=== PATIENT | male | born 1970 | race Two or more races ===

== ENCOUNTER 2019-08-29 06:46 | Day surgery (SDC) | payer OTHER ==
[~2019-08-29] VITALS: Ht 165.1 cm; Wt 102.5 kg
[2019-08-29] VITALS (12 sets, daily range): BP systolic 108–148; BP diastolic 57–90
[~2019-08-29 06:46] MED LIST: ATORVASTATIN CA20 MG ORAL; FARXIGA10 MG PO; GLIPIZIDE5 MG ORAL; LISINOPRIL20 MG ORAL; METFORMIN HCL1000 M1 ORAL; ceFAZolin 1gm IVPB IVPB ONE; celeBREX 200mg Cap **SURGERY PATIENTS ONLY ORAL ONE; oxyCONTIN 20mg tab ORAL ONE
[2019-08-29] MEDS ORDERED: Midazolam 2mg/2ml Inj ONE (08:21)
[2019-08-29] MEDS ORDERED: Ketorolac 30mg Inj ONE ×2 (08:21→08:56)
[2019-08-29] MEDS ORDERED: fentaNYL 100 mcg/2 mL IV ONE (08:21)
[2019-08-29] MEDS ORDERED: Lidocaine 1% MPF 10mg/ml 5ml ONE (08:21)
[2019-08-29] MEDS ORDERED: Ropivacaine 5mg/ml Vial 20ml INJ ONE (08:22)
[2019-08-29] MEDS ORDERED: celeBREX 200mg Cap **SURGERY PATIENTS ONLY ORAL ONE (08:32)
[2019-08-29] MEDS ORDERED: oxyCONTIN 20mg tab ORAL ONE (08:32)
[2019-08-29] MEDS ORDERED: Kenalog-40 1ml Vial ONE (08:56)
[2019-08-29] MEDS ORDERED: EPINEPHrine 1mg/1ml Amp ONE (08:56)
[2019-08-29] MEDS ORDERED: LR 1000ml ONE (09:00)
[2019-08-29] MEDS ORDERED: NS Irrig 2000ml IRRIG ONE (09:00)
--- NOTE | 2019-08-29 10:11 | Anethesia Preoperative Eval ---
Anesthesia Pre-op PMH/ROS General Date of Evaluation: Aug 29, 2019 Time of Evaluation: 08:56 Anesthesiologist: Staci ASA Score: ASA 3 Mallampati Score Class I : Soft palate, uvula, fauces, pillars visible Class II: Soft palate, uvula, fauces visible Class III: Soft palate, base of uvula visible Class IV: Only hard plate visible Mallampati Classification: Class II Surgeon: Jose Diagnosis: L shoulder pain Surgical Procedure: L shoulder scope Anesthesia History: none Social History: current smoker Family History: no anesthesia problems Allergies: Coded Allergies: No Known Allergies (Unverified , 08/29/19) Medications: see eMAR Patient NPO?: Yes Past Medical History Cardiovascular: Reports: HTN; Denies: CAD, PR, valve dz, arrhythmia, other Pulmonary: Reports: LISSY; Denies: asthma, COPD, other Gastrointestinal/Genitourinary: Reports: GERD; Denies: CRI, ESRD, other Neurologic/Psychiatric: Reports: depression/anxiety, other - chronic pain; Denies: dementia, CVA, TIA Endocrine: Reports: DM - not well controled on pills; Denies: hypothyroidism, steroids, other HEENT: Denies: cataract (L), cataract (R), glaucoma, [place] (L), [place] (R), other Hematology/Immune: Denies: anemia, DVT, bleeding disorder, other Musculoskeletal/Integumentary: Denies: OA, RA, DJD, DDD, edema, other Other: obesity PMH Narrative: as above PSxH Narrative: L shoulder Sx, back Sx Anesthesia Pre-op Phys. Exam Physician Exam Last Vital Signs Date Time Temp Pulse Resp B/P (MAP) Pulse Ox O2 Delivery O2 Flow Rate FiO2 08/29/19 08:29 97.4 76 18 144/88 98 Room Air Constitutional: NAD Neurologic: CN 2-12 intact Cardiovascular: RRR Respiratory: CTA Gastrointestinal: S/NT/ND Airway Exam Mallampati Score: Class II MO: full Neck: flexible ROM: full Teeth: intact Dentures: no upper, no lower Anesthesia Pre-op A/P Labs see chart Studies Pre-op Studies: EKG - SR Risk Assessment & Plan Assessment: ASA 3 Plan: GA with LMA L brachial plexus block for postop pain control Status Change Before Surgery: No Pre-Antibiotics Drug: ANcef 2gr Given Within 1 Hr of Incision: Yes Time Given: 09:48 Damian Small MD Aug 29, 2019 10:11
[2019-08-29] MEDS ORDERED: LR 1000ml 1,000 ML IVLG SCH (10:12)
[2019-08-29] MEDS ORDERED: Ketorolac 30mg Inj IV PRN (10:15)
[2019-08-29] MEDS ORDERED: Hydromorphone 0.5mg/0.5ml inj IVP PRN (10:15)
[2019-08-29] MEDS ORDERED: DiphenhydrAMINE 50mg/ml Inj IVP PRN (10:15)
--- NOTE | 2019-08-29 10:37 | Operative Note - PDOC ---
Operative Note Operative Note Pre-op Diagnosis: left shoulder internal derangement Procedure: see op report Post-op Diagnosis: same as pre-op plus Operative Findings: consistent w/pre-op dx studies Anesthesia: regional Specimen: none Complications: none Condition: stable Estimated Blood Loss: none Implant(s) used?: No Mikel Garcia MD Aug 29, 2019 10:37
--- NOTE | 2019-08-29 10:37 | Pre-Procedure Note/Attestation ---
Pre-Procedure Note/Attestation Complete Prior to Procedure Planned Procedure: left Procedure Narrative: shoulder diagnostic arthroscopy, sad, possible rc repair Indications for Procedure Pre-Operative Diagnosis: left shoulder internal derangement Attestation I attest that I discussed the nature of the procedure; its benefits; risks and complications; and alternatives (and the risks and benefits of such alternatives ), prior to the procedure, with the patient (or the patient's legal account retention representative). I attest that, if there was a reasonable possibility of needing a blood transfusion, the patient (or the patient's legal account retention representative) was given the [facility] standardized written summary, pursuant to the Royer Devyn Blood Safety Act ([place] Health and Safety Code # 1645, as amended). I attest that I re-evaluated the patient just prior to the surgery and that there has been no change in the patient's H&P, except as documented below: Mikel Garcia MD Aug 29, 2019 10:37
[2019-08-29] MEDS ORDERED: Tylenol #3 tab (300mg/30mg) ORAL PRN (10:45)
[2019-08-29] MEDS ORDERED: D5 1/2NS 1,000 ML IV SCH (10:45)
[2019-08-29] MEDS ORDERED: HYDROmorphone 1mg/ml Carpuject SUBQ PRN (10:45)
[2019-08-29] MEDS ORDERED: HYDROcodone/Acetamin 5/325 tab ORAL PRN (10:45)
--- NOTE | 2019-08-29 10:46 | Immediate Post-Op Evaluation ---
Immediate Post-Op Evalulation Immediate Post-Op Evalulation Procedure: L shoulder arthroscopy with subacromion decompression Date of Evaluation: Aug 29, 2019 Time of Evaluation: 10:45 IV Fluids: 600 Blood Products: none Estimated Blood Loss: min Urinary Output: none Blood Pressure Systolic: 116 Blood Pressure Diastolic: 64 Pulse Rate: 82 Respiratory Rate: 20 O2 Sat by Pulse Oximetry: 98 Temperature (Fahrenheit): 97.6 Pain Score (1-10): 2 Nausea: No Vomiting: No Complications none Patient Status: reacts, patent, none Hydration Status: adequate Damian Small MD Aug 29, 2019 10:46
--- NOTE | 2019-08-29 12:59 | 48 Hour Post Anesthesia Eval ---
Post Anesthesia Evaluation Procedure: L shoulder arthroscopy with subacromion decompression Date of Evaluation: Aug 29, 2019 Time of Evaluation: 12:57 Blood Pressure Systolic: 142 0: 72 Pulse Rate: 74 Respiratory Rate: 20 Temperature (Fahrenheit): 97.6 O2 Sat by Pulse Oximetry: 98 Airway: patent Nausea: No Vomiting: No Pain Intensity: 1 Hydration Status: adequate Cardiopulmonary Status: stable Mental Status/LOC: patient returned to baseline Follow-up Care/Observations: n/a Post-Anesthesia Complications: none Follow-up care needed: ready to discharge Damian Small MD Aug 29, 2019 12:59
--- NOTE | 2019-08-29 22:00 | Operative Note - Dictated ---
DATE OF OPERATION: 08/29/2019 PREOPERATIVE DIAGNOSES: 1. Left shoulder rotator cuff tear. 2. Left shoulder impingement syndrome/bursitis. POSTOPERATIVE DIAGNOSES: 1. Grade 1 superior labral tear. 2. Partial articular-sided rotator cuff tear involving the supraspinatus tendon. 3. Left shoulder bursitis/impingement syndrome. 4. Left shoulder partial articular-sided supraspinatus tendon tear. PROCEDURE: 1. Left shoulder extensive intraarticular debridement. 2. Left shoulder subacromial decompression/bursectomy. 3. Left shoulder rotator cuff debridement SURGEON: Mikel Garcia MD ANESTHESIA: Interscalene with general. INDICATION FOR PROCEDURE: The patient is a pleasant gentleman, who has progressive left shoulder pain. The patient had a previous rotator cuff surgery. He had a repeat MRI which showed extravasation of the dye. Given that he failed conservative treatment, there was concern that he may have a retear of the rotator cuff. The patient was indicative of diagnostic arthroscopy, possible repair of rotator cuff with current subacromial decompression bursectomy. Risks, limitations, expectations, and complications related to the procedure were discussed in detail. All questions addressed. DESCRIPTION OF PROCEDURE: After informed consent was obtained, the patient was brought to the operating room. The patient was placed under interscalene general anesthesia. Left shoulder was prepped and draped in a sterile manner. Time-out was performed. Inferolateral stab incision was then made. Trocar introduced into the interval joint. There was fraying along the superior labrum. There is no anterior labral tear. No chondral damage. Subscap appeared to be intact. The biceps tendon along the bicipital groove was intact, the insertion of superior labrum had erythema. There was no gross subluxation in the biceps tendon or undersurface of the supraspinatus to the partial tear. Shaver was then placed in the glenohumeral joint. Debridement of the superior labrum rotator cuff was performed. Once this was done, the camera was repositioned in the subacromial space. Hypertrophic bursal tissue was excised revealing the undersurface of acromion, acromioplasty was completed from lateral medial and posterior to anterior. Once the bursectomy was completed, there was bursal sided anterior edge tear of the supraspinatus which was debrided down to stable tissue. Given the concern for the dye extravasation to the 2 compartments, camera was repositioned into glenohumeral joint. At this point, another diagnostic arthroscopy was performed to ensure that there was no need for further repair. Instruments removed. Portal sites were closed with 3-0 Monocryl sutures. Steri-Strips and a sterile dressing were applied. ESTIMATED BLOOD LOSS: None. COMPLICATIONS: None. SPECIMENS: None. IMPLANTS: None. Mikel Garcia M.D. DR: DIANELYS JOB#: [id number] CC: [email or web address]
== END 2019-08-29 14:00 | disposition home or self-care (01) ==
LOC: SUR 06:46
DX: M75.112 Incomplete rotator cuff tear or rupture of left shoulder, not specified as traumatic (principal); S43.432A Superior glenoid labrum lesion of left shoulder, initial encounter; M71.9 Bursopathy, unspecified; X58.XXXA Exposure to other specified factors, initial encounter; Y92.9 Unspecified place or not applicable; F17.200 Nicotine dependence, unspecified, uncomplicated; I10 Essential (primary) hypertension; G47.33 Obstructive sleep apnea (adult) (pediatric); K21.9 Gastro-esophageal reflux disease without esophagitis; E11.9 Type 2 diabetes mellitus without complications; F32.9 Major depressive disorder, single episode, unspecified; F41.9 Anxiety disorder, unspecified; E66.9 Obesity, unspecified; Z68.37 Body mass index [BMI] 37.0-37.9, adult
CPT/HCPCS: 29823; 94003; J0171; J0690; J1885; J2250; J2704; J2795; J3010; J3301; J7120; U0002; 94150